=== PATIENT | male | born 2000 | race Caucasian/White ===

== ENCOUNTER 2018-05-27 12:56 | Emergency (ER) | payer OTHER ==
[2018-05-27 13:09] VITALS: PULSE 119; BMI 44.3
[2018-05-27] MEDS ORDERED: KETOROLAC TROMETHAMINE 30 MG/1 ML VIAL IM ONE (13:15)
[2018-05-27] MEDS ORDERED: morphine CARPU-JECT 2 MG/1 ML DISP.SYRIN IM ONE (13:16)
[2018-05-27] MEDS ORDERED: morphine SULFATE 4 MG/ML VIAL ONE (13:21)
[2018-05-27] MEDS ORDERED: LORazepam 2 MG/ML SDV VIAL ONE (13:22)
--- NOTE | 2018-05-27 13:28 | PDOC ---
History of Present Illness - General Chief Complaint: Injury Stated Complaint: MILVIA INJURY Time Seen by Provider: 05/27/18 13:04 History Source: Patient Exam Limitations: No Limitations - History of Present Illness Initial Comments: 05/27/18 13:21 17 yo M with a hx of autism (non verbal), temporal lobe epilepsy, and aggressive behavior presents to the ED s/p rolling his left ankle after a behavioral incident at his daytime facility. Per the daytime facility, he was having an aggressive behavior towards the staff and was guided toward a padded area. He started becoming violent, hitting others, and jumping up and down aggressively landing on his left ankle without falling. Per the facility he did not hit his head or have LOC. He was unable to bear weight on it. Unable to assess ROS due to non verbal status. Past History - Past Medical History Allergies/Adverse Reactions: Allergies Allergy/AdvReac Type Severity Reaction Status Date / Time No Known Allergies Allergy Verified 05/27/18 13:09 Home Medications: Ambulatory Orders Aripiprazole [Abilify] 10 mg PO HS 05/27/18 Aripiprazole [Abilify] 20 mg PO AM 05/27/18 Chlorpromazine [Thorazine -] 100 mg PO HS 05/27/18 Chlorpromazine [Thorazine -] 150 mg PO DAILY 05/27/18 Oxcarbazepine [Trileptal -] 20 mg PO BID 05/27/18 Sertraline HCl [Zoloft 20mg/mL Oral Solution -] 50 mg PO BID 05/27/18 COPD: No Seizures: Yes Other medical history: autism - Immunization History Immunization Up to Date: Yes - Suicide/Smoking/Psychosocial Hx Smoking History: Never smoked Review of Systems - Review of Systems Able to Perform ROS?: No (non verbal) *Physical Exam - Vital Signs Last Vital Signs Temp Pulse Resp BP Pulse Ox 119 H 18 147/117 H 100 05/27/18 13:06 05/27/18 13:06 05/27/18 13:06 05/27/18 13:06 - Physical Exam General Appearance: Yes: Nourished, Appropriately Dressed, Obese, Other ( visibly uncomfortable). No: Apparent Distress, Intoxicated HEENT: positive: EOMI, REGULO, Symmetrical, Pharynx Normal. negative: Pale Conjunctivae, Scleral Icterus (R), Scleral Icterus (L), Muffled/Hoarse voice, Pharyngeal Erythema, Tonsillar Exudate, Tonsillar Erythema, Excessive drooling Neck: positive: Trachea midline, Supple. negative: Tender, Lymphadenopathy (R) , Lymphadenopathy (L), Tender lateral, Tender midline Respiratory/Chest: positive: Lungs Clear, Normal Breath Sounds. negative: Chest Tender, Respiratory Distress, Accessory Muscle Use, Crackles, Rales, Rhonchi, Stridor, Wheezing Cardiovascular: positive: Regular Rhythm, Regular Rate, S1, S2. negative: Systolic Murmur Gastrointestinal/Abdominal: positive: Normal Bowel Sounds, Flat, Soft. negative : Tender Lymphatic: negative: Adenopathy Extremity: positive: Normal Capillary Refill, Tender, Swelling (right ankle inspection within normal limits with normal range of motion with 2+ dorsalis pedis pulse. left ankle with obvious deformity with intact 2+ dorsalis pedis pulse with limited ROM due to pain. tenderness to palpation in the medial malleolus aspect of the left ankle. ). negative: Normal Inspection, Normal Range of Motion, Coldness, Cyanosis Integumentary: positive: Normal Color, Dry. negative: Swelling, Ecchymosis Neurologic: positive: Alert Moderate Sedation - Procedure Monitoring Vital Signs: Procedure Monitoring Vital Signs Temperature Pulse Rate 119 H 05/27/18 13:06 Respiratory Rate 18 05/27/18 13:06 Blood Pressure 147/117 H 05/27/18 13:06 O2 Sat by Pulse Oximetry (%) 100 05/27/18 13:06 ED Treatment Course - LABORATORY CBC & Chemistry Diagram: 05/27/18 15:23 05/27/18 15:23 - RADIOLOGY Radiology Studies Ordered: Category Date Time Status ANKLE & FOOT-LEFT* [RAD] Stat Radiology 05/27/18 13:15 Ordered HIP-LEFT [RAD] Stat Radiology 05/27/18 13:15 Ordered KNEE 3 POS-LEFT [RAD] Stat Radiology 05/27/18 13:15 Ordered Medical Decision Making - Medical Decision Making 05/27/18 13:30 17 yo M with a hx of autism (non verbal), temporal lobe epilepsy, and aggressive behavior presents to the ED s/p rolling his left ankle after a behavioral incident at his daytime facility. Initial vitals: Initial Vital Signs Pulse Resp BP Pulse Ox 119 H 18 147/117 H 100 05/27/18 13:06 05/27/18 13:06 05/27/18 13:06 05/27/18 13:06 Work up: ddx: dislocation of the medial malleolus vs medial malloleus fracture patient was uncomfortable in the emergency department and given 4 mg of IM morphine and 1 mg of ativan ankle/foot, knee, and hip xray all left side ordered. ankle xray shows distal lateral and medial malleolus fractures consistent with bimalleolar fracture with possible tri-malleolar fracture but imaging is suboptimal to make this consideration. call was placed to [facility] for further consultation. patient has ankle reduced with adequate post reduction images shown. patient tolerated the procedure. patient was given return precautions and follow up instructions for ortho follow up given. it was explained that he would need to maintain the ankle on the left side as non weight bearing. Dispo: Discharge *DC/Admit/Observation/Transfer Diagnosis at time of Disposition: Bimalleolar fracture of left ankle Qualifiers: Encounter type: sequela Fracture type: closed Qualified Code(s): S82.842S - Displaced bimalleolar fracture of left lower leg, sequela - Discharge Dispostion Disposition: HOME - Referrals Referrals: Melvin Foster [Primary Care Provider] - Juanjo Ireland MD [Staff Physician] - - Patient Instructions Printed Discharge Instructions: DI for Ankle Fracture Additional Instructions: you were seen for your ankle fracture and given a splint. please do not wet the splint. please follow up with orthopedics in 1 week at their office. please return to the emergency department if he has worsening pain or new concerning symptoms such as swelling of the foot, cold feet, discoloration, and infection. thank you. - Post Discharge Activity
--- NOTE | 2018-05-27 14:55 | PDOC ---
Attending Attestation - Medical Decision Making 05/27/18 14:25 Called placed to ortho ([facility]) awaiting call back 05/27/18 14:40 Case discussed with JULIÁN Lyn. 05/27/18 15:14 Called placed to ortho, informed that PA is headed over. <Nohemy Marin - Last Filed: 05/27/18 15:13> - Resident Resident Name: DenaCaesar - ED Attending Attestation I have performed the following: I have examined & evaluated the patient, The case was reviewed & discussed with the resident, I agree w/resident's findings & plan, Exceptions are as noted - HPI HPI: 05/27/18 14:51 The patient is a 17 year old male, with a significant PMH of mental retardation and temporal lobe seizures, who presents to the emergency department today after rolling his left ankle in gym class around 11:30 am. Patients child caregiver states that the patient was getting aggressive in gym class, so he moved the patient to a padded area. The patient was jumping up and down when he rolled his left ankle. No fall or head strike. No LOC. Pt has been in his USOH recently with no fevers, chills, other changes. Allergies: NDKA - Physicial Exam PE: 05/27/18 14:55 agree with resident exam FROM at L hip and knee with ankle held in traction L distal leg with gross deformity proximal to L ankle and moderate edema. 2+ DP and TP pulses. Compartments soft. - Medical Decision Making 05/27/18 14:57 17yo M presents to the ED with L ankle pain after rolling his ankle. XR with bi- mal fracture/dislocation. Currently NVI. Vitals with elevated BP and HR although pt is very agitated and in pain. Will treat with morphine IM and ativan IM and repeat vitals Case discussed with JULIÁN Lyn from ortho, he will discuss with Dr. Ireland 05/27/18 15:13 Rpt vitals with BP 110/70, HR 92. Pt more comfortable at this time, less agitated. Dr. Ireland and JLUIÁN Lyn at bedside, plan for local hematoma block with lidocaine followed by reduction/splinting. 05/27/18 16:20 Pt s/p reduction by Dr. Ireland. Post reduction XR with successful reduction and good re-alignment. Foot NVI. In light of concern that pt can not be NWB after surgery, per Dr. Ireland's discussion with family, plan for non-op management. Pt to f/u with Dr. Ireland in 1 week. Pt's parents and main caretakers request ambulance to their home for transportation. <Mesfin Escobar - Last Filed: 05/27/18 21:36> Attestations - Attestations 05/27/18 15:15 Documentation prepared by Nohemy Marin, acting as medical assistant instructor for Mesfin Escobar MD. <Nohemy Marin - Last Filed: 05/27/18 15:13>
[2018-05-27] MEDS ORDERED: LIDOCAINE HCL 1%, 10 MG/ML (20ML VIAL) ONE (15:28)
[2018-05-27 15:41] LABS: BASO % 0.4 % (0-2.0); EOS % 0.2 % (0-4.5); HEMATOCRIT 42.1 % (35.4-49); HEMOGLOBIN 14.1 GM/dL (11.7-16.9); LYMPH % 12.3 % (8-40); MCH 29.6 pg (25.7-33.7); MCHC 33.4 g/dl (32.0-35.9); MEAN CELL VOLUME 88.8 fl (80-96); MEAN PLT VOLUME 11.3 fl (7.5-11.1); MONO % 6.3 % (3.8-10.2); NEUT % 80.8 % (42.8-82.8); PLATELET COUNT 169 K/MM3 (134-434); RBC 4.75 M/mm3 (4.00-5.60); RDW 13.3 % (11.9-15.9); WHITE BLOOD COUNT 15.8 K/mm3 (4.0-10.0)
[2018-05-27 16:12] LABS: INR 2.49 (0.83-1.09); PROTHROMBIN TIME (PATIENT) 29.6 SEC (9.7-13.0)
[2018-05-27 16:14] LABS: ACTIVATED PTT 34.2 SECONDS (25.2-36.5)
--- NOTE | 2018-05-27 16:19 | CONSULT ---
Consult - text type - Consultation Consultation Note: Asked to eval this 17M, severely autistic, for left ankle fx. He sustained a fall today. PMH: autism Meds: reviewed in chart All: NKDA FH:n/c SH: lives with mom PE: 17M, obese, non verbal, follows some commands LLE gross deformity, skin intact, good pulses focused neuro exam difficult but grossly intact b/l UE RLE movement without difficulty no peripheral edema Xrays: left bimalleolar ankle fracture dislocation Imp: Left unstable ankle fracture/dislocation -under sterile prep, intrarticular block performed -ankle reduced and splinted with AO splint -post reduction Xrays show much improved alignment and joint reduction -I had a long discussion with his parents: -the issue with him is that mom does not deel that he can comply with NWB for the 6 weeks that is necessary to properly heal this injury after ORIF. If he cannot comply, then he could end up with wound complications (higher risk for him because of obesity), hardware complications, and loss of reduction. Treating non operatively has similar risk of loss of reduction but will not have the potential surgical complications. They understand that if the ankle heals in non anatomic position, he will have a significant risk of arthrtis in this joint in the future. At this point, after long discussion, they feel he will be better with non op treatment. I have recommended they obtain a wheelchair for him, help him with transfers, and keep the splint dry. I have recommended daily adult dose ASA for DVT prophylaxis. I have also recommend getting him out if bed with supervision as much as possible, several times a day. -F/u in one week in my office for repeat Xrays.
[2018-05-27 16:20] LABS: ALBUMIN 4.2 g/dl (3.4-5.0); ALK PHOS 67 U/L (45-117); ANION GAP 7 MMOL/L (8-16); BILIRUBIN,TOTAL 0.4 mg/dL (0.2-1); BLOOD UREA NITROGEN 13 mg/dL (7-18); CALCIUM 9.5 mg/dL (8.5-10.1); CHLORIDE 104 mmol/L (98-107); CO2 25 mmol/L (21-32); CREATININE 0.6 mg/dL (0.55-1.3); GLUCOSE,RANDOM 118 mg/dL (74-106); SGPT/ALT 68 U/L (13-61); SODIUM 136 mmol/L (136-145); TOT PROT 8.2 g/dl (6.4-8.2)
[2018-05-27 16:21] LABS: POTASSIUM 4.6 mmol/L (3.5-5.1); SGOT/AST 40 U/L (15-37)
[2018-05-27 20:47] VITALS: BP 110/70
== END 2018-05-27 21:00 | disposition home or self-care (01) ==
LOC: JER 12:56
PROC: 3E033NZ Introduction of Analgesics, Hypnotics, Sedatives into Peripheral Vein, Percutaneous Approach (ICD-10-PCS; principal; 2018-05-27)
PROC: 3E033NZ Introduction of Analgesics, Hypnotics, Sedatives into Peripheral Vein, Percutaneous Approach (ICD-10-PCS; 2018-05-27)
PROC: 0QSKXZZ Reposition Left Fibula, External Approach (ICD-10-PCS; 2018-05-27)
PROC: 0QSHXZZ Reposition Left Tibia, External Approach (ICD-10-PCS; 2018-05-27)
PROC: 2W3RX1Z Immobilization of Left Lower Leg using Splint (ICD-10-PCS; 2018-05-27)
DX: S82.842A Displaced bimalleolar fracture of left lower leg, initial encounter for closed fracture (principal); Y93.39 Activity, other involving climbing, rappelling and jumping off; X50.1XXA Overexertion from prolonged static or awkward postures, initial encounter; Y92.89 Other specified places as the place of occurrence of the external cause; Y99.8 Other external cause status; G40.802 Other epilepsy, not intractable, without status epilepticus; F91.1 Conduct disorder, childhood-onset type; F84.0 Autistic disorder
CPT/HCPCS: 36415; 73502-TC-LT-FY; 73562-TC-LT-FY; 73610-TC-LT-FY; 73630-TC-LT; 80053; 85025; 85610; 85730; 99281-25

== ENCOUNTER 2018-06-26 09:59 | Day surgery (SDC) | payer OTHER ==
[2018-06-25 15:21] VITALS: BMI 43.0
--- NOTE | 2018-06-26 07:30 | OP ---
Operative Note - Note: Operative Date: 06/26/18 Pre-Operative Diagnosis: Left ankle fracture Operation: Left ankle ORIF Post-Operative Diagnosis: Same as Pre-op Surgeon: Francis Leyva Information Officer: Jennifer Booth Anesthesiologist/SERVICENOW ADMINISTRATOR: Marita Abad Anesthesia: General Operative Report Dictated: Yes
[2018-06-26] MEDS ORDERED: diazePAM 5 MG TABLET PO ONE (10:30)
[2018-06-26] MEDS ORDERED: BUPIVACAINE HCL/PF (5 MG/ML) 30 ML VIAL IJ ONE (11:12)
[2018-06-26] MEDS ORDERED: MIDAZOLAM HCL 2 MG/2 ML SINGLE DOSE VIAL ONE ×2 (11:12→11:42)
[2018-06-26] MEDS ORDERED: BUPIVACAINE LIPOSOME/PF (EXPAREL) 266 MG/20 ML VIAL ONE (11:12)
[2018-06-26] MEDS ORDERED: PROPOFOL 20 ML ONE ×4 (11:40→12:11)
[2018-06-26] MEDS ORDERED: SUCCINYLCHOLINE CHLORIDE 200 MG/10 ML VIAL ONE ×2 (11:40→12:11)
[2018-06-26] MEDS ORDERED: fentaNYL CITRATE 250 MCG/5 ML VIAL ONE (12:10)
[2018-06-26] MEDS ORDERED: ROCURONIUM BROMIDE 50 MG/5 ML VIAL ONE (12:11)
[2018-06-26] MEDS ORDERED: ceFAZolin SODIUM 1 GM VIAL ONE (12:25)
[2018-06-26] MEDS ORDERED: ONDANSETRON 4 MG/2 ML VIAL ONE ×2 (12:25→14:49)
[2018-06-26] MEDS ORDERED: DEXAMETHASONE SOD PHOSPHATE 4 MG/1 ML VIAL ONE ×2 (12:25→14:49)
[2018-06-26] MEDS ORDERED: oxyCODONE HCL 5 MG TABLET PO PRN (12:56)
[2018-06-26] MEDS ORDERED: ONDANSETRON 4 MG/2 ML VIAL IVPUSH PRN (12:56)
[2018-06-26] MEDS ORDERED: LACTATED RINGERS SOLUTION 1,000 ML IV SCH (13:00)
[2018-06-26] MEDS ORDERED: HYDROmorphone HCL/PF 1 MG/ML AMP ONE (13:42)
[2018-06-26] MEDS ORDERED: TRANEXAMIC ACID 1000 MG/10 ML VIAL ONE (14:16)
--- NOTE | 2018-06-26 15:43 | OP ---
DATE OF OPERATION: 06/26/2018 PREOPERATIVE DIAGNOSIS: Left unstable ankle fracture. POSTOPERATIVE DIAGNOSIS: Left unstable ankle fracture. PROCEDURE: Left ankle open reduction and internal fixation. SURGEON: Francis Ruff MD SUMMER BABYSITTER: JULIÁN Biggs, whose skillful assistance was necessary for the safe and timely performance of this procedure. Ms. Booth was able to help provide the positioning, retraction, as well as the insertion of the orthopedic fixation and hardware. ANESTHESIA: Regional. POSTOPERATIVE CONDITION: Stable. COMPLICATIONS: None. IMPLANTS: Arthrex distal fibular plate with 2.7 and 3.5 mm locking and non-locking screws. INDICATIONS: This is a gentleman who has been cared for by my partner with closed treatment of an ankle fracture dislocation. After returning 4-1/2 weeks after the initial injury, he was found to have displacement of his fracture. The ankle joint was subluxed and, therefore, operative care was indicated. In order to facilitate time and treatment, I did not see the patient in the office but rather scheduled him for surgery the next day and I discussed the surgery with this mother in the preoperative holding area. The procedure was described in detail. We discussed the use of plates and screws. I suggested that we hold the bones in the proper alignment and by holding the bones in proper alignment, the ankle joint should stay reduced. I reviewed the options of nonoperative care with significant potential for arthritic degeneration of the ankle joints and possible loss of the ability to walk. I reviewed the operative risks including bleeding, infection, neurovascular injury, need for further surgery, postoperative pain and stiffness, nonunion, malunion, hardware failure and cutout, and persistent ankle instability. I discussed the medical risks such as heart attack, stroke, DVT, PE, and . I discussed the use of perioperative antibiotic and DVT prophylaxis. I reviewed the postoperative rehabilitation protocol and the need for some physical therapy after he has adequately healed. I addressed all of his mothers questions and concerns. She voiced understanding and elected to proceed. PROCEDURE: The patient was brought to the operating room. After administration of a regional block in the preoperative holding area the left lower extremity was then prepped and draped in the usual sterile fashion. A preoperative dose of antibiotics was given and the usual time out procedure was performed. An incision was now planned out over the distal fibula. This was carried down through the skin and subcutaneous tissue. Blunt spreading was used to expose the periosteum over the tibia and the fibula. The periosteum was then elevated both anteriorly and posteriorly to expose the fracture site. There was a moderate amount of callus present but this was debrided out for the fracture site utilizing a combination of a rongeur, curettes, and a drill. Having mobilized the fracture site now, fracture reduction forceps were used to obtain a near anatomic reduction. A moderate comminution was also noted at this time. Initially a lag screw was attempted; however, the comminution posteriorly presented the lag screw from gaining . The decision was now made to perform direct plate fixation. A plate was chosen and slid under the reduction forceps. It was affixed to the bone initially using a 3 point cortical screw. Additional 3.5 screws and 2.7 screws were used to secured the remainder of the fixation. At this point, fluoroscopy was used to confirm both fracture reduction and hardware placement. Both were satisfactory. A lateral fluoroscopy external rotation stress test was performed demonstrating no widening corners. The patients wound was then copiously irrigated. The fascia was approximated using 0 Vicryl. The subcutaneous tissue was approximated using 2-0 Vicryl. The skin was closed using an interrupted horizontal mattress nylon suture. Sterile dressings were placed. The patient was extubated and transferred to the recovery room in stable condition. FRANCIS RUFF M.D. CECILIA/[id number]
[2018-06-26 16:19] VITALS: TEMP 98.8
[2018-06-26 17:29] VITALS: BP 156/92; PULSE 92
== END 2018-06-26 17:50 | disposition home or self-care (01) ==
LOC: FASU 09:59
PROVIDERS: ATTEND Orthopaedic Surgery Sports Medicine
PROC: 0QSK04Z Reposition Left Fibula with Internal Fixation Device, Open Approach (ICD-10-PCS; 2018-06-26)
PROC: 0QSK04Z Reposition Left Fibula with Internal Fixation Device, Open Approach (ICD-10-PCS; principal; 2018-06-26 12:45)
DX: S82.62XA Displaced fracture of lateral malleolus of left fibula, initial encounter for closed fracture (principal); X58.XXXA Exposure to other specified factors, initial encounter; Y93.9 Activity, unspecified; Y92.9 Unspecified place or not applicable
CPT/HCPCS: 27792; C1713; 73610-TC-LT-FY; 76000-TC-FY; 94760